=== PATIENT | male | born 1995 | race Caucasian/White ===

== ENCOUNTER → 2016-10-12 | Day surgery (SDC) | payer BC, OTHER ==
[~2016-10-12] VITALS: Ht 167.6 cm; Wt 68.0 kg
[~2016-10-12] MED LIST: BUPIVACAINE HCL 0.25% 30 ML VIAL As Ordered ONE; BUPIVACAINE HCL 0.25% 30 ML VIAL XX ONE; GLYCOPYRROLATE INJ 0.2 MG/ML 2 ML VIAL As Ordered ONE; KETOROLAC 60 MG/2 ML VIAL (J1885) As Ordered ONE; LIDOCAINE 2% INJ 100 MG/5 ML SDV (FOR ANES.) As Ordered ONE; LR 1,000 ML IV SCH; METOCLOPRAMIDE INJ 10MG/2ML VIAL (J2765) As Ordered ONE; MIDAZOLAM INJ 2 MG/2 ML VIAL (J2250) As Ordered ONE; MORPHINE 2 MG/ML 1ML SYRINGE IV PRN; NEOSTIGMINE 1MG/ML 5 ML SYRINGE (J2710) As Ordered ONE; NORCO, ANEXSIA 5/325MG TABLET (HYDROcodone/ACETAMINOPHEN) PO PRN; ONDANSETRON 4MG/2ML VIAL (J2405) As Ordered ONE; ONDANSETRON 4MG/2ML VIAL (J2405) IV PRN; PROPOFOL 200 MG/20 ML VIAL As Ordered ONE; ROCURONIUM BROMIDE 50 MG/5 ML VIAL As Ordered ONE; SUCCINYLCHOLINE 100 MG/5 ML SYRINGE (J0330) As Ordered ONE; dexameTHASONE 4 MG/ML 1ML VIAL (J1100) As Ordered ONE; fentaNYL 100 MCG/2 ML INJECTION (J3010) IV PRN; fentaNYL 250 MCG/5 ML INJECTION (J3010) As Ordered ONE; no medication
[2016-10-12 12:05] VITALS: BP 133/74
--- NOTE | 2016-10-15 07:39 | RO ---
DATE OF PROCEDURE: 10/12/2016 PREOPERATIVE DIAGNOSIS: Right inguinal hernia. POSTOPERATIVE DIAGNOSIS: Indirect right inguinal hernia. PROCEDURE PERFORMED: Right inguinal herniorrhaphy with Ultrapro mesh. SURGEON: Dr. Alessandro Montez ANESTHESIA: General. INDICATIONS FOR PROCEDURE: The patient is a 21-year-old man who presented to the office with a definite reducible right inguinal hernia bulge. He has had a previous left inguinal hernia repair some years ago. He is now for an elective right inguinal herniorrhaphy. DESCRIPTION OF PROCEDURE: The patient was placed under general endotracheal anesthesia. The patient's lower abdomen, groins and genitalia were prepped and draped in a sterile fashion. An approximately 7 to 8 cm oblique skin incision was made in the right lower abdomen over the course of the inguinal canal. The incision was deepened through the subcutaneous tissues. Several smaller veins were cauterized. The external oblique was exposed and was opened in the direction of its fibers into the external ring. The spermatic cord was identified. There was a nerve running down along the medial aspect of the spermatic cord. The spermatic cord was isolated at the pubic tubercle and elevated with a flexible drain. The nerve was also freed from the underlying internal oblique muscle and elevated. The spermatic cord was skeletonized and a moderately large indirect inguinal hernia sac was identified. This was opened and there were no adherent contents. The sac was dissected free from the other cord structures up into the internal ring. The sac was suture ligated at the neck and excised. The neck retracted nicely beneath the level of the fascia. A 6 x 11 cm piece of Ultrapro mesh was selected. This was trimmed to fit the inguinal floor. This was sutured at the pubic tubercle with a #3-0 Prolene which was carried along the lateral border of the mesh suturing this to the shelving edge of the inguinal ligament. The mesh had been split to fit about the spermatic cord and the medial portion of the mesh was tucked beneath the previously mentioned nerve. The mesh was tacked to the underlying muscle and fascia with interrupted simple sutures of #3-0 Vicryl. The tails of the mesh were overlapped lateral to the cord and sutured in place. This appeared to give a nice reinforcement of the inguinal floor with narrowing of the internal ring. Approximately 10 mL of 0.25% Marcaine were infiltrated about the wound. The external oblique was closed with a running suture of #0 Vicryl. The subcutaneous tissues were closed with chromic. An additional 10 mL of 0.25% Marcaine were infiltrated about the wound. The skin edges were approximated with a running subcuticular #4-0 Vicryl and Steri-Strips. Light dressing was applied. The patient tolerated the procedure well without apparent complication. He was awakened in the operating room, extubated and moved to the recovery room in stable condition. CEZAR
== END | disposition home or self-care (01) ==
LOC: M SDC 06:05
PROVIDERS: ATTEND Surgery
DX: K40.90 Unilateral inguinal hernia, without obstruction or gangrene, not specified as recurrent (principal)
CPT/HCPCS: 49505; 88302; C1781; J0330; J1100; J1885; J2250; J2405; J2710; J2765; J3010

== ENCOUNTER → 2017-04-13 | Outpatient (REF) | payer OTHER, BC ==
[~2017-04-13] MED LIST changes: -BUPIVACAINE HCL 0.25% 30 ML VIAL As Ordered ONE; -BUPIVACAINE HCL 0.25% 30 ML VIAL XX ONE; -GLYCOPYRROLATE INJ 0.2 MG/ML 2 ML VIAL As Ordered ONE; -KETOROLAC 60 MG/2 ML VIAL (J1885) As Ordered ONE; -LIDOCAINE 2% INJ 100 MG/5 ML SDV (FOR ANES.) As Ordered ONE; -LR 1,000 ML IV SCH; -METOCLOPRAMIDE INJ 10MG/2ML VIAL (J2765) As Ordered ONE; -MIDAZOLAM INJ 2 MG/2 ML VIAL (J2250) As Ordered ONE; -MORPHINE 2 MG/ML 1ML SYRINGE IV PRN; -NEOSTIGMINE 1MG/ML 5 ML SYRINGE (J2710) As Ordered ONE; -NORCO, ANEXSIA 5/325MG TABLET (HYDROcodone/ACETAMINOPHEN) PO PRN; -ONDANSETRON 4MG/2ML VIAL (J2405) As Ordered ONE; -ONDANSETRON 4MG/2ML VIAL (J2405) IV PRN; -PROPOFOL 200 MG/20 ML VIAL As Ordered ONE; -ROCURONIUM BROMIDE 50 MG/5 ML VIAL As Ordered ONE; -SUCCINYLCHOLINE 100 MG/5 ML SYRINGE (J0330) As Ordered ONE; -dexameTHASONE 4 MG/ML 1ML VIAL (J1100) As Ordered ONE; -fentaNYL 100 MCG/2 ML INJECTION (J3010) IV PRN; -fentaNYL 250 MCG/5 ML INJECTION (J3010) As Ordered ONE
== END ==
LOC: M LAB REF 09:35
PROVIDERS: ATTEND Physician Assistant
DX: J02.9 Acute pharyngitis, unspecified (principal)

== ENCOUNTER 2019-10-30 21:36 | Emergency (ER) | payer BC, OTHER ==
[~2019-10-30] VITALS: Ht 170.2 cm; Wt 80.8 kg
[2019-10-30 21:36] VITALS: BP 164/84
[2019-10-30] MEDS ORDERED: AUGMENTIN 875 MG TAB PO ONE (22:15)
[2019-10-30] MEDS ORDERED: AUGM875T28 PO (22:17)
== END 2019-10-30 22:26 | disposition home or self-care (01) ==
LOC: M ED 21:36
DX: S20.371A Other superficial bite of right front wall of thorax, initial encounter (principal); S40.871A Other superficial bite of right upper arm, initial encounter; W54.0XXA Bitten by dog, initial encounter; Y92.008 Other place in unspecified non-institutional (private) residence as the place of occurrence of the external cause; J45.909 Unspecified asthma, uncomplicated

== ENCOUNTER 2019-12-09 07:35 | Emergency (ER) | payer BC ==
[~2019-12-09] VITALS: Ht 170.2 cm; Wt 79.8 kg
[~2019-12-09 07:35] MED LIST changes: +AUGM875T28 PO
--- NOTE | 2019-12-09 09:16 | REP ---
SCROTAL SONOGRAPHY: HISTORY: Left testicular pain. There is a comparison scrotal sonography from September 26, 2010. That prior study showed a small right epididymal cyst. SONOGRAPHIC FINDINGS: High-resolution bilateral scrotal sonography shows no evidence of intratesticular mass. There are two small right epididymal cyst noted measuring 5 and 2 mm in greatest diameter respectively. Somewhat heterogeneous texture is seen in the epididymal tail on the right. This area is not hyperemic on Doppler. Doppler flow is present in both testes. Resistive indices are 0.62 and 0.64 on the right and left respectively. Right testis measures 4.9 x 2.2 x 3.0 cm. Left testicular dimensions are 4.6 x 2.0 x 3.2 cm. No other abnormality. IMPRESSION: There are two small right epididymal cysts. Otherwise negative scrotal sonography. Electronically Signed by Basim Caldwell MD 12/09/2019 02:01 P
[2019-12-09] MEDS ORDERED: IBUP-1022 PO (09:53)
[2019-12-09 10:09] VITALS: BP 141/80
[2019-12-09 10:48] LABS: CHLAMYDIA DNA AMPLIFICATION NEGATIVE (NEGATIVE); GC DNA AMPLIFICATION NEGATIVE (NEGATIVE)
== END 2019-12-09 10:16 | disposition home or self-care (01) ==
LOC: M ED 07:35
DX: N50.3 Cyst of epididymis (principal)